=== PATIENT | male | born 1970 | race Caucasian/White ===

== ENCOUNTER 2019-06-24 10:22 | Observation (INO) ==
[2019-06-24] MEDS ORDERED: ALUM/MAG/SIMETH/LIDO VISC 1:1 30 ML BOTTLE PO STA (11:26)
[2019-06-24] MEDS ORDERED: ASPIRIN 325 MG TABLET PO STA (11:26)
[2019-06-24 11:35] LABS: Basophils # 0.1 10*3/uL (0.0-0.2); Basophils % 0.4 % (0.0-0.8); Eosinophils # 0.4 10*3/uL (0.0-0.87); Eosinophils % 2.1 % (0.00-10.9); Hematocrit 50.5 VOL% (42.0-52.0); Hemoglobin 17.8 GM/DL (14.0-18.0); Immature Granulocytes % 0.5 %; Immature Granulocytes Absolute 0.11 #; Lymphocytes # 1.3 10*3/uL (1.4-4.0); Lymphocytes % 6.3 % (21.2-54.2); Mean Corpuscular HGB Conc 35.2 GM/DL (32-36); Mean Corpuscular Volume 89.4 FL (87-102); Mean Platelet Volume 11.4 FL (9.6-12.0); Monocytes % 5.8 % (1.7-12.7); Neutrophils % 84.9 % (38.7-73.9); Platelet Count 199 T/CUMM (130-400); Red Blood Count 5.65 MC/CUMM (3.8-5.5); Red Cell Distribution Width 11.9 % (9.3-17.3); White Blood Count 20.5 T/CUMM (4-12)
[2019-06-24 11:39] LABS: PT Patient Result 10.6 SECS (9.6-12.2); Partial Thromboplastin Time 25.8 SECS (20.8-36.0)
[2019-06-24 11:48] LABS: Albumin 4.2 G/DL (3.4-5.0); Bilirubin,Total 0.6 MG/DL (0.2-1.0); Calcium 9.1 MG/DL (8.5-10.1); Osmolality,Calculated 286.1 MOS/KG (273-304)
[2019-06-24 12:02] LABS: Eosinophils 1 % (0-10); Hypochromasia 1+; Lymphocytes 4 % (20-55); Platelet Estimate Adequate; Segmented Neutrophils 91 % (50-85); Total Cells Counted 100
[2019-06-24 12:23] LABS: Barbiturates Screen,Urine Negative (Negative); Benzodiazepines Screen,Urine Negative (Negative); Cannabinoid Screen,Urine Negative (Negative); Opiate Screen,Urine Negative (Negative); Phencyclidine Screen,Urine Negative (Negative)
[2019-06-24 15:37] LABS: Apearance,Urine CLEAR (Clear); Bilirubin,Urine Negative (Negative); Blood, Urine Small mg/dL (Negative); Glucose,Urine (UA) Negative (Negative); Ketones,Urine Negative (Negative); Mucus,Urine Few /LPF (Occasional); Nitrite,Urine Negative (Negative); Protein,Urine Negative; RBC,Urine 3 /HPF (0-4); Urine Color Yellow (Yellow); Urine Specific Gravity 1.021 (1.001-1.035); Urine Urobilinogen < 2.0 EU/DL (0.2-1.0); WBC,Urine <1 /HPF (0-6)
[2019-06-24] MEDS ORDERED: ONDANSETRON 4 MG/2 ML VIAL IV PRN (15:49)
[2019-06-24] MEDS ORDERED: ACETAMINOPHEN 325 MG TABLET PO PRN (15:49)
[2019-06-24] MEDS ORDERED: DOCUSATE SODIUM 100 MG CAPSULE PO PRN (15:49)
[2019-06-24] MEDS ORDERED: ENOXAPARIN 40 MG/0.4 ML SYRINGE SUBCUT SCH (16:00)
[2019-06-24] MEDS: PANTOPRAZOLE 40 MG TABLET PO SCH (17:05)
[2019-06-24] MEDS: LEVOFLOXACIN INJ 500 MG in PREMIX 1 EACH IV SCH (17:24)
[2019-06-24 17:35] LABS: Troponin I < 0.015 NG/ML (0.00-0.045)
[2019-06-24] MEDS: metroNIDAZOLE INJ 500 MG in PREMIX 1 EACH IV SCH (18:22)
[2019-06-24] MEDS: NICOTINE 21 MG/24 HR PATCH TRANSDERM SCH (18:23)
[2019-06-24 22:01] LABS: Troponin I < 0.015 NG/ML (0.00-0.045)
[2019-06-25] MEDS: metroNIDAZOLE INJ 500 MG in PREMIX 1 EACH IV SCH ×2 (02:24→10:11)
[2019-06-25 04:46] LABS: Basophils % 0.5 % (0.0-0.8); Eosinophils # 0.5 10*3/uL (0.0-0.87); Eosinophils % 6.6 % (0.00-10.9); Hematocrit 44.5 VOL% (42.0-52.0); Hemoglobin 15.4 GM/DL (14.0-18.0); Immature Granulocytes % 0.5 %; Immature Granulocytes Absolute 0.04 #; Lymphocytes # 1.4 10*3/uL (1.4-4.0); Lymphocytes % 17.8 % (21.2-54.2); Mean Corpuscular HGB Conc 34.6 GM/DL (32-36); Mean Corpuscular Volume 90.4 FL (87-102); Mean Platelet Volume 10.8 FL (9.6-12.0); Monocytes % 9.6 % (1.7-12.7); Platelet Count 145 T/CUMM (130-400); Red Blood Count 4.92 MC/CUMM (3.8-5.5); Red Cell Distribution Width 12.1 % (9.3-17.3); White Blood Count 7.8 T/CUMM (4-12)
[2019-06-25 05:25] LABS: Calcium 7.9 MG/DL (8.5-10.1); Osmolality,Calculated 282.3 MOS/KG (273-304); Risk Ratio 5.29; Thyroid Stimulating Hormone 0.529 uIU/ml (0.358-3.74); VLDL CHOLESTEROL 55.8 MG/DL
[2019-06-25 08:00] VITALS: BP 103/66
[2019-06-25] MEDS: PANTOPRAZOLE 40 MG TABLET PO SCH (08:39)
[2019-06-25] MEDS: NICOTINE 21 MG/24 HR PATCH TRANSDERM SCH (08:41)
[2019-06-25] MEDS: LEVOFLOXACIN INJ 500 MG in PREMIX 1 EACH IV SCH (08:43)
[2019-06-25] MEDS ORDERED: ATORVASTATIN 20 MG TABLET PO SCH (09:00)
== END 2019-06-25 11:50 | disposition home or self-care (01) ==
LOC: N.EDINP 10:22 → N.ED 10:22 → N.2E 16:53
PROVIDERS: ADMIT Hospitalist; ATTEND Hospitalist